=== PATIENT | female | born 1965 | race African-American/Black ===

== ENCOUNTER → 2016-05-10 | Outpatient (CLI) | payer OTHER ==
[2016-02-29 01:42] VITALS: BP 129/83
[2016-05-10 16:52] LABS: BASOPHILS % (AUTO) 1.2 % (0.2-1.0); EOSINOPHILS # (AUTO) 0.1 x10^3/uL (0.0-0.2); HEMATOCRIT 36.9 % (36.0-47.0); LYMPHOCYTES # (AUTO) 1.5 X10^3/uL (1.3-2.9); LYMPHOCYTES % (AUTO) 39.4 % (21.0-51.0); MEAN CORPUSCULAR HEMOGLOBIN 27.9 pg (27.0-34.0); MEAN CORPUSCULAR HGB CONC 32.5 g/dL (33.0-35.0); MEAN CORPUSCULAR VOLUME 85.7 fL (80.0-100.0); MEAN PLATELET VOLUME 7.5 fL (7.4-11.0); MONOCYTES # (AUTO) 0.2 x10^3/uL (0.3-0.8); MONOCYTES % (AUTO) 6.4 % (0.0-13.0); NEUTROPHILS # (AUTO) 1.9 x10^3/uL (2.2-4.8); PLATELET COUNT 361 X10^3/uL (150.0-450.0); RED BLOOD COUNT 4.31 X10^6/uL (3.5-5.4); RED CELL DISTRIBUTION WIDTH 14.4 % (11.6-16.5); WHITE BLOOD COUNT 3.8 X10^3/uL (3.6-10.0)
== END ==
LOC: LAB 16:13
PROVIDERS: ATTEND Family Medicine
DX: Z79.899 Other long term (current) drug therapy (principal)
CPT/HCPCS: 36415; 85025

== ENCOUNTER → 2016-06-07 | Outpatient (CLI) | payer OTHER ==
[2016-02-29 01:42] VITALS: BP 129/83
[2016-06-07 14:19] LABS: BASOPHILS % (AUTO) 0.6 % (0.2-1.0); EOSINOPHILS # (AUTO) 0.1 x10^3/uL (0.0-0.2); EOSINOPHILS % (AUTO) 3.1 % (0.9-2.9); HEMATOCRIT 35.2 % (36.0-47.0); HEMOGLOBIN 11.6 g/dL (12.0-16.0); LYMPHOCYTES # (AUTO) 1.5 X10^3/uL (1.3-2.9); LYMPHOCYTES % (AUTO) 40.7 % (21.0-51.0); MEAN CORPUSCULAR HEMOGLOBIN 28.2 pg (27.0-34.0); MEAN CORPUSCULAR HGB CONC 32.9 g/dL (33.0-35.0); MEAN CORPUSCULAR VOLUME 85.8 fL (80.0-100.0); MEAN PLATELET VOLUME 7.3 fL (7.4-11.0); MONOCYTES # (AUTO) 0.3 x10^3/uL (0.3-0.8); MONOCYTES % (AUTO) 9.4 % (0.0-13.0); NEUTROPHILS # (AUTO) 1.6 x10^3/uL (2.2-4.8); NEUTROPHILS % (AUTO) 46.2 % (42.0-75.0); PLATELET COUNT 322 X10^3/uL (150.0-450.0); RED BLOOD COUNT 4.11 X10^6/uL (3.5-5.4); RED CELL DISTRIBUTION WIDTH 13.6 % (11.6-16.5); WHITE BLOOD COUNT 3.6 X10^3/uL (3.6-10.0)
== END ==
LOC: LAB 13:44
PROVIDERS: ATTEND Clinical Nurse Specialist Women's Health
DX: Z79.899 Other long term (current) drug therapy (principal)
CPT/HCPCS: 36415; 85025

== ENCOUNTER → 2016-11-13 | Outpatient (CLI) | payer MEDICAID ==
[2016-02-29 01:42] VITALS: BP 129/83
--- NOTE | 2016-11-14 10:09 | RAD ---
HISTORY: Dyspnea Study: Two views of the chest Comparison: February 29, 2016 Findings: The patient is slightly rotated. The cardiac silhouette is unremarkable. The lungs are well expande d without focal infiltrate or effusion. Interstitial changes are again seen within both lungs lindsay lar to prior study. IMPRESSION: 1. No acute cardiopulmonary disease. Reported By:
--- NOTE | 2016-11-14 10:20 | RAD ---
HISTORY: Bilateral hand pain. Study: Three views each of the bilateral hands. Comparison: Bilateral hand series dated March 28, 2015. Findings: Persistent mild osteoarthritis at the DIP joint of the right middle finger. Remaining joint spaces ap pear normal. No acute cortical disruption or dislocation can be identified. No significant soft tiss ue swelling or injury can be seen. IMPRESSION: No acute osseous abnormality. Reported By:
--- NOTE | 2016-11-14 10:24 | RAD ---
HISTORY: Bilateral knee pain. Study: Three views each of the bilateral knees. Comparison: Right knee series dated February 29, 2016. Findings: No evidence for acute cortical disruption or dislocation. Mild bilateral tricompartmental osteoarthr itis. Small bilateral knee effusions. IMPRESSION: Chronic findings as above. Reported By:
--- NOTE | 2016-11-14 11:26 | RAD ---
HISTORY: Other forms of dyspnea. Study: Three views each of the bilateral feet. Comparison: Bilateral foot series dated March 28, 2015. Findings: Mild/moderate osteoarthritis of the bilateral 1st MTP joints. Bilateral calcaneal enthesophytes. No a cute cortical disruption or dislocation can be identified. No significant soft tissue swelling or in jury can be seen. IMPRESSION: No acute osseous abnormality. Reported By:
== END | disposition home or self-care (01) | DRG 204 ==
LOC: RAD 14:52
PROVIDERS: ATTEND Nurse Practitioner Family
DX: R06.09 Other forms of dyspnea (principal); M06.09 Rheumatoid arthritis without rheumatoid factor, multiple sites; M17.0 Bilateral primary osteoarthritis of knee
CPT/HCPCS: 71020; 73130; 73564; 73630

== ENCOUNTER 2022-04-14 22:54 | Inpatient (IN) ==
--- NOTE | 2022-04-14 23:31 | ED.ABDFE ---
HPI Time Seen Time Seen by Provider: 04/14/22 23:29 PCP Primary Care Physician: ROSALIO Zamora Doctors Chief Complaint Comments: 56 y/o female presents with abdominal pain. Was fine earlier today, pain woke her up. + sharp, diffuse of abdomen, does not radiate. + nausea, has vomited x 5xs. No report of diarrhea. Feels hot, no known fever. No URI symptoms. Has h/o hysterectomy, BTL in the distant past. No h/o SBOs. Chief Complaint:: C/O ABD PAIN THAT WOKE HER FROM SLEEP TONIGHT, DENIES ANY OTHER S/S Self Treatment fo Chief Complaint: NONE COVID-19 Coronavirus risk:travel/contact w/high risk person: No Has patient experienced Coronavirus symptoms: No Reviewed Nurses Notes Review: Yes Source History Provided: Patient Mode of arrival Mode of Arrival: Ambulatory Timing Onset of Chief Complaint: 04/14/22 PMH PMH Past Medical History: Yes Past Medical History: Arthritis, COPD and PUD Past Surgical History: Yes Surgical History: Hysterectomy Family History History of Family Medical Conditions: Yes Family Medical History: Diabetes Mellitus, Cancer and Hypertension Social History Does patient currently use any type of tobacco product: No Have you used tobacco products in the last 12 months: No Type of Tobacco Use: None Alcohol Use: DAILY Do you use any recreational Drugs:: No Lives Where: Home Travel Risk Coronavirus risk:travel/contact w/high risk person: No Has patient experienced Coronavirus symptoms: No Infectious screening Have you traveled outside the country in the last 6 months?: No Isolation: Standard ROS Review of Systems Constitutional: Weakness Eyes: No Symptoms Reported ENTM: No Symptoms Reported Respiratoy: No Symptoms Reported Cardiovascular: No Symptoms Reported Gastrointestinal/Abdominal: See HPI Genitourinary: No Symptoms Reported Neurological: No Symptoms Reported Musculoskeletal: No Symptoms Reported Integumentary: No Symptoms Reported All Other Systems: Reviewed and Negative PE Vital Signs Vitals: Temperature 97.6 F Pulse Rate 80 Respiratory Rate 20 Blood Pressure [Right Calf] 125/68 Blood Pressure [Left Calf] 112/48 Blood Pressure [Left Arm] 111/81 Blood Pressure [Right Arm] 122/58 Blood Pressure 122/68 O2 Sat by Pulse Oximetry 97 General General Appearance: Alert and In Distress Eyes Eye exam: PERRL and EOMI ENT ENT Exam: Mucous Membranes Moist Neck Neck Exam: Normal Inspection Respiratory Respiratory Exam: Normal Lung Sounds Bilat; negative Accessory Muscle Use or Respiratory Distress Cardiovascular Cardiovascular Exam: Regular Rate, Normal Rhythm and Normal Heart Sounds Abdominal Exam Abdominal Exam: Normal Bowel Sounds, Soft and Tenderness (diffuse, all quadrants, no guarding or rebound. Pain worse across the upper abdomen.) Back Back Exam: Normal Inspection; negative (R) CVA Tenderness or (L) CVA Tenderness Extremeties Extremities Exam: Normal Inspection; negative Edema Neurologic Neurological Exam: Alert, Oriented X3 and CN II-XII Intact; negative Motor Sensory Deficit Skin Skin Exam: Warm and Dry COURSE Treatment Treatment: 56 y/o female with sudden onset of diffuse abdominal pain, with vomiting. Pain worse across the upper abdomen. Still has her GB. W/u initiated. Given IV fluids, IV zofran. 0152 - CBC, CMP acceptable. Lipase markedly elevated at 2,086. Pt admits to drinking a few beers on a daily basis. Pt given IV dilaudid, 1 mg, for pain. CT abd/pelvis w/IV contrast done. + findings c/w acute pancreatitis, probably related to Etoh use. Recommend admission for further treatment, bowel rest. 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 ROR Labs Reviewed Laboratory Results Reviewed?: Yes Result Diagrams: 04/14/22 23:45 04/14/22 23:45 Laboratory: WBC 8.1 X10^3/uL (3.6-10.0) 04/14/22 23:45 RBC 4.43 X10^6/uL (3.5-5.4) 04/14/22 23:45 Hgb 12.6 g/dL (12.0-16.0) 04/14/22 23:45 Hct 37.6 % (36.0-47.0) 04/14/22 23:45 MCV 84.9 fL (80.0-100.0) 04/14/22 23:45 MCH 28.5 pg (27.0-34.0) 04/14/22 23:45 MCHC 33.6 g/dL (33.0-35.0) 04/14/22 23:45 RDW 13.0 % (11.6-16.5) 04/14/22 23:45 Plt Count 330 X10^3/uL (150.0-450.0) 04/14/22 23:45 MPV 7.4 fL (7.4-11.0) 04/14/22 23:45 Neut % (Auto) 66.9 % (42.0-75.0) 04/14/22 23:45 Lymph % (Auto) 25.8 % (21.0-51.0) 04/14/22 23:45 [place] % (Auto) 4.7 % (0.0-13.0) 04/14/22 23:45 Eos % (Auto) 1.7 % (0.9-2.9) 04/14/22 23:45 Baso % (Auto) 0.9 % (0.2-1.0) 04/14/22 23:45 Neut # (Auto) 5.4 x10^3/uL (2.2-4.8) H 04/14/22 23:45 Lymph # (Auto) 2.1 X10^3/uL (1.3-2.9) 04/14/22 23:45 [place] # (Auto) 0.4 x10^3/uL (0.3-0.8) 04/14/22 23:45 Eos # (Auto) 0.1 x10^3/uL (0.0-0.2) 04/14/22 23:45 Baso # (Auto) 0.1 X10^3/uL (0.0-0.1) 04/14/22 23:45 Absolute Nucleated RBC 0.0 /100WBC 04/14/22 23:45 Sodium 141 mmol/L (136-145) 04/14/22 23:45 Corrected Sodium 142 mmol/L (136-145) 04/14/22 23:45 Potassium 3.6 mmol/L (3.5-5.1) 04/14/22 23:45 Chloride 106 mmol/L (98-107) 04/14/22 23:45 Carbon Dioxide 24.6 mmol/L (21-32) 04/14/22 23:45 BUN 14 mg/dL (7-18) 04/14/22 23:45 Creatinine 0.72 mg/dL (0.55-1.02) 04/14/22 23:45 Est GFR (MDRD) Af Amer > 60 (>60) 04/14/22 23:45 Est GFR (MDRD) Non-Af > 60 (>60) 04/14/22 23:45 Glucose 139 mg/dL (65-99) H 04/14/22 23:45 Calcium 9.5 mg/dL (8.5-10.1) 04/14/22 23:45 Corrected Calcium TNP 04/14/22 23:45 Total Bilirubin 0.20 mg/dL (0.2-1.0) 04/14/22 23:45 AST 30 Units/L (15-37) 04/14/22 23:45 ALT 31 Units/L (12-78) 04/14/22 23:45 Alkaline Phosphatase 53 Units/L (46-116) 04/14/22 23:45 Total Protein 7.2 g/dL (6.4-8.2) 04/14/22 23:45 Albumin 3.4 g/dL (3.4-5.0) 04/14/22 23:45 Globulin 3.8 g/dL (2.5-4.5) 04/14/22 23:45 Albumin/Globulin Ratio 0.9 Ratio (1.1-2.1) L 04/14/22 23:45 Lipase 2086 Units/L (73-393) H 04/14/22 23:45 Lipase 2,086 XRAY XRAY Interpreted by: Both X-ray Results: CT abd/pelvis with inflammation of the pancreas. Opioid Opioid Risk Tool Age (Evan box if 16-45): No History of Preadolescent Sexual Abuse: No Total: 0 Total Score Risk Category: Low Risk Copyright: Hakan RUBALCAVA predicting aberrant behaviors Discharge Plan Diagnosis Discharge Problem: Acute pancreatitis Discharge Plan Patient Disposition: 09 ADMITTED INPATIENT Condition: Stable Prescriptions: No Action hydroxychloroquine [Plaquenil] 200 mg Tablet 200 mg PO BID Health Concerns: Post Hospitalization: new medications and changes needed to prevent readmission or further decline. Pt educated and given instructions on all concerns. Plan of Treatment: Continue with present treatment and follow up plan. Pt is to keep follow up a ppointment as instructed and take medications as ordered. Orders to Discharge Patient Discharge Orders: Transfer (Routine); Ordered 04/15/22 Ordered By: Collin Medina Follow ups/Referrals Follow ups/Referrals: TAMIA SANTAMARIA [Primary Care Provider] - 3 days
[2022-04-14] MEDS ORDERED: ZOFRAN INJ 4 MG VIAL IVP ONE (23:36)
[2022-04-14] MEDS ORDERED: NS 1,000 ML IV 1,000 ML IV ONE (23:36)
[2022-04-14] MEDS ORDERED: ZOFRAN INJ 4 MG VIAL ONE (23:40)
[2022-04-14] MEDS ORDERED: NS 1,000 ML IV 1,000 ML ONE (23:41)
[2022-04-15] LABS: BASOPHILS # (AUTO) 0.1 X10^3/uL (0.0-0.1); BASOPHILS % (AUTO) 0.9 % (0.2-1.0); EOSINOPHILS # (AUTO) 0.1 x10^3/uL (0.0-0.2); EOSINOPHILS % (AUTO) 1.7 % (0.9-2.9); HEMATOCRIT 37.6 % (36.0-47.0); HEMOGLOBIN 12.6 g/dL (12.0-16.0); LYMPHOCYTES # (AUTO) 2.1 X10^3/uL (1.3-2.9); LYMPHOCYTES % (AUTO) 25.8 % (21.0-51.0); MEAN CORPUSCULAR HEMOGLOBIN 28.5 pg (27.0-34.0); MEAN CORPUSCULAR HGB CONC 33.6 g/dL (33.0-35.0); MEAN CORPUSCULAR VOLUME 84.9 fL (80.0-100.0); MEAN PLATELET VOLUME 7.4 fL (7.4-11.0); MONOCYTES # (AUTO) 0.4 x10^3/uL (0.3-0.8); MONOCYTES % (AUTO) 4.7 % (0.0-13.0); NEUTROPHILS # (AUTO) 5.4 x10^3/uL (2.2-4.8); NEUTROPHILS % (AUTO) 66.9 % (42.0-75.0); RED BLOOD COUNT 4.43 X10^6/uL (3.5-5.4); WHITE BLOOD COUNT 8.1 X10^3/uL (3.6-10.0)
[2022-04-15 00:07] LABS: ALANINE AMINOTRANSFERASE 31 Units/L (12-78); ALBUMIN 3.4 g/dL (3.4-5.0); ALKALINE PHOSPHATASE 53 Units/L (46-116); ASPARTATE AMINO TRANSFERASE 30 Units/L (15-37); BLOOD UREA NITROGEN 14 mg/dL (7-18); CALCIUM 9.5 mg/dL (8.5-10.1); CARBON DIOXIDE 24.6 mmol/L (21-32); CHLORIDE 106 mmol/L (98-107); COR NA(FOR HYPERGLY) 142 mmol/L (136-145); CREATININE 0.72 mg/dL (0.55-1.02); SODIUM 141 mmol/L (136-145); TOTAL PROTEIN 7.2 g/dL (6.4-8.2); eGFR NON BLACK RACES > 60 (>60)
[2022-04-15 00:21] LABS: LIPASE 2086 Units/L (73-393)
[2022-04-15] MEDS ORDERED: DILAUDID INJ IVP ONE (00:36)
[2022-04-15] MEDS ORDERED: DILAUDID INJ ONE (00:39)
--- NOTE | 2022-04-15 02:40 | CT ---
PROCEDURE: CT Abdomen and Pelvis with Contrast .HISTORY: Abdomen pain and elevated lipase.TECHNIQUE: Axial images were performed through the abdomen and pelvis with the administration of IV contrast with multiplanar reformations . Oral contrast was not administered. Dose reduction techniques including Automated Exposure Control (AEC) and adjustment of mA and kV were utilized .COMPARISON: 09/05/2021.TECHNICAL QUALITY: Satisfactory .FINDINGS:Linear scar versus discoid atelectasis lung bases. Small hiatal hernia.Liver, spleen, and adrenals show no abnormality. Peripancreatic stranding diffusely consistent with mild to moderate acute pancreatitis with no pseudo cyst.Kidneys show no masses or obstruction.Normal biliary tract.No ascites or pneumoperitoneum.Mild atherosclerosis aorta.No lymphadenopathy.No bowel obstruction or inflammation and normal appendix.Pelvis shows no masses or free fluid with previous hysterectomy. Normal urinary bladder.No acute bony abnormality.IMPRESSION:1. [id number] acute pancreatitis.2. Small hiatal hernia.3. No other significant abnormality identified.Electronically signed by: Pavel Dial (Apr 15, 2022 02:38:56)
[2022-04-15] MEDS ORDERED: ZOFRAN INJ 4 MG VIAL IVP PRN (03:37)
[2022-04-15] MEDS: DILAUDID INJ IVP PRN ×4 (03:53→18:07)
[2022-04-15] MEDS: ZOSYN VIAL 3.375 GRAMS 3.375 G in NS 100 ML IV 100 ML IV SCH ×3 (03:53→22:40)
[2022-04-15] MEDS: LR 1,000 ML IV 1,000 ML IV SCH ×4 (03:53→18:55)
[2022-04-15 05:19] VITALS: BMI 29.9
[2022-04-15 06:13] LABS: BASOPHILS % (AUTO) 0.1 % (0.2-1.0); HEMATOCRIT 37.1 % (36.0-47.0); HEMOGLOBIN 12.3 g/dL (12.0-16.0); LYMPHOCYTES # (AUTO) 0.7 X10^3/uL (1.3-2.9); LYMPHOCYTES % (AUTO) 6.9 % (21.0-51.0); MEAN CORPUSCULAR HEMOGLOBIN 28.5 pg (27.0-34.0); MEAN CORPUSCULAR HGB CONC 33.2 g/dL (33.0-35.0); MEAN CORPUSCULAR VOLUME 85.9 fL (80.0-100.0); MEAN PLATELET VOLUME 7.8 fL (7.4-11.0); MONOCYTES # (AUTO) 0.4 x10^3/uL (0.3-0.8); MONOCYTES % (AUTO) 3.9 % (0.0-13.0); NEUTROPHILS # (AUTO) 9.3 x10^3/uL (2.2-4.8); NEUTROPHILS % (AUTO) 89.1 % (42.0-75.0); RED BLOOD COUNT 4.31 X10^6/uL (3.5-5.4); RED CELL DISTRIBUTION WIDTH 12.9 % (11.6-16.5); WHITE BLOOD COUNT 10.4 X10^3/uL (3.6-10.0)
[2022-04-15 06:22] LABS: ALANINE AMINOTRANSFERASE 28 Units/L (12-78); ALBUMIN 3.5 g/dL (3.4-5.0); ALKALINE PHOSPHATASE 52 Units/L (46-116); ASPARTATE AMINO TRANSFERASE 26 Units/L (15-37); BLOOD UREA NITROGEN 12 mg/dL (7-18); CALCIUM 9.3 mg/dL (8.5-10.1); CHLORIDE 106 mmol/L (98-107); COR NA(FOR HYPERGLY) 141 mmol/L (136-145); CREATININE 0.66 mg/dL (0.55-1.02); SODIUM 140 mmol/L (136-145); TOTAL PROTEIN 7.1 g/dL (6.4-8.2); eGFR NON BLACK RACES > 60 (>60)
[2022-04-15] MEDS: LOVENOX INJ 40 MG SYR SC SCH (09:50)
[2022-04-15 15:28] LABS: BILIRUBIN,URINE NEGATIVE (NEGATIVE); BLOOD/HEMOGLOBIN,URINE 1+ (NEGATIVE); GLUCOSE, URINE NEGATIVE (NEGATIVE); KETONES,URINE 1+ (NEGATIVE); LEUKOCYTE ESTERASE ,URINE NEGATIVE (NEGATIVE); NITRITES,URINE NEGATIVE (NEGATIVE); PROTEIN,URINE 1+ (NEGATIVE); UROBILINOGEN,URINE NORMAL (NORMAL)
[2022-04-15 15:33] LABS: APPEARANCE,URINE CLEAR (CLEAR); COLOR,URINE YELLOW (YELLOW)
[2022-04-15 15:38] LABS: BACTERIA,URINE 1+ /HPF (NEGATIVE); RBC,URINE 0-2 /HPF (0-3); SQUAMOUS EPITHELIAL CELL,UR NUMEROUS /HPF (NEGATIVE)
[2022-04-16] MEDS: DILAUDID INJ IVP PRN ×4 (00:24→18:05)
[2022-04-16] MEDS: LR 1,000 ML IV 1,000 ML IV SCH ×2 (02:00→03:03)
[2022-04-16] MEDS: ZOSYN VIAL 3.375 GRAMS 3.375 G in NS 100 ML IV 100 ML IV SCH ×3 (05:40→22:11)
[2022-04-16 06:15] LABS: BASOPHILS % (AUTO) 0.2 % (0.2-1.0); EOSINOPHILS # (AUTO) 0.2 x10^3/uL (0.0-0.2); EOSINOPHILS % (AUTO) 1.8 % (0.9-2.9); HEMATOCRIT 35.2 % (36.0-47.0); HEMOGLOBIN 11.7 g/dL (12.0-16.0); LYMPHOCYTES % (AUTO) 10.8 % (21.0-51.0); MEAN CORPUSCULAR HEMOGLOBIN 28.4 pg (27.0-34.0); MEAN CORPUSCULAR HGB CONC 33.4 g/dL (33.0-35.0); MEAN CORPUSCULAR VOLUME 85.1 fL (80.0-100.0); MEAN PLATELET VOLUME 7.5 fL (7.4-11.0); MONOCYTES # (AUTO) 0.4 x10^3/uL (0.3-0.8); MONOCYTES % (AUTO) 4.9 % (0.0-13.0); NEUTROPHILS # (AUTO) 7.6 x10^3/uL (2.2-4.8); NEUTROPHILS % (AUTO) 82.3 % (42.0-75.0); RED BLOOD COUNT 4.13 X10^6/uL (3.5-5.4); RED CELL DISTRIBUTION WIDTH 12.9 % (11.6-16.5); WHITE BLOOD COUNT 9.2 X10^3/uL (3.6-10.0)
[2022-04-16 06:21] LABS: ALANINE AMINOTRANSFERASE 21 Units/L (12-78); ALKALINE PHOSPHATASE 47 Units/L (46-116); ASPARTATE AMINO TRANSFERASE 22 Units/L (15-37); BLOOD UREA NITROGEN 9 mg/dL (7-18); CALCIUM 8.9 mg/dL (8.5-10.1); CARBON DIOXIDE 26.5 mmol/L (21-32); CHLORIDE 105 mmol/L (98-107); COR CA(FOR HYPOALB) 9.7 mg/dL (8.5-10.1); CREATININE 0.62 mg/dL (0.55-1.02); SODIUM 141 mmol/L (136-145); TOTAL PROTEIN 6.6 g/dL (6.4-8.2); eGFR NON BLACK RACES > 60 (>60)
--- NOTE | 2022-04-16 07:49 | DR.H&P ---
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 She reports pain is sharp, periumbilical and epigastric. Reports some nausea. Denies pain radiation, fever, chills, vomiting. She does report history of alcohol consumption of a 6 pack a day. Labs/imaging: Wbc 10.4, Hgb 12.3, Plt 312, Na 140, K 3.8, Creatinine 0.66, Glucose 135. CT abdomen and pelvis was obtained that revealed: 1. [id number] acute pancreatitis. 2. Small hiatal hernia. No other significant abnormality identified. Admit for acute pancreatitis. Will start on IVF NS@125ml/h and due to significant abdominal pain will keep NPO at this time. Mild leukocytosis on labs, was started on antibiotics Zosyn in the ED, will continue at this lorna. Will start pain control with Dilaudid 1mg q4h prn. Con tinue to closely monitor and follow up labs in the morning. Past Medical History Past Medical History: Arthritis, COPD and PUD Additional Medical History: Tobacco Abuse, Substance Abuse Past Surgical History Surgical History: Hysterectomy Family History Family Medical History: Diabetes Mellitus, Cancer and Hypertension Social History Does patient currently use any type of tobacco product: No Have you used tobacco products in the last 12 months: No Type of Tobacco Use: None Alcohol Use: DAILY Drug Use: Marijuana Medications Home Medications: ibuprofen [From Motrin] Allergy (Unknown, Verified 04/14/22 23:14) aspirin Allergy (Verified 04/14/22 23:14) Labs Result Diagrams: 04/16/22 05:47 04/16/22 05:47 Labs: Laboratory WBC 10.4 X10^3/uL (3.6-10.0) H 04/15/22 05:15 RBC 4.31 X10^6/uL (3.5-5.4) 04/15/22 05:15 Hgb 12.3 g/dL (12.0-16.0) 04/15/22 05:15 Hct 37.1 % (36.0-47.0) 04/15/22 05:15 MCV 85.9 fL (80.0-100.0) 04/15/22 05:15 MCH 28.5 pg (27.0-34.0) 04/15/22 05:15 MCHC 33.2 g/dL (33.0-35.0) 04/15/22 05:15 RDW 12.9 % (11.6-16.5) 04/15/22 05:15 Plt Count 312 X10^3/uL (150.0-450.0) 04/15/22 05:15 MPV 7.8 fL (7.4-11.0) 04/15/22 05:15 Neut % (Auto) 89.1 % (42.0-75.0) H 04/15/22 05:15 Lymph % (Auto) 6.9 % (21.0-51.0) L 04/15/22 05:15 [place] % (Auto) 3.9 % (0.0-13.0) 04/15/22 05:15 Eos % (Auto) 0.0 % (0.9-2.9) L 04/15/22 05:15 Baso % (Auto) 0.1 % (0.2-1.0) L 04/15/22 05:15 Neut # (Auto) 9.3 x10^3/uL (2.2-4.8) H 04/15/22 05:15 Lymph # (Auto) 0.7 X10^3/uL (1.3-2.9) L 04/15/22 05:15 [place] # (Auto) 0.4 x10^3/uL (0.3-0.8) 04/15/22 05:15 Eos # (Auto) 0.0 x10^3/uL (0.0-0.2) 04/15/22 05:15 Baso # (Auto) 0.0 X10^3/uL (0.0-0.1) 04/15/22 05:15 Absolute Nucleated RBC 0.0 /100WBC 04/15/22 05:15 Sodium 140 mmol/L (136-145) 04/15/22 05:15 Corrected Sodium 141 mmol/L (136-145) 04/15/22 05:15 Potassium 3.8 mmol/L (3.5-5.1) 04/15/22 05:15 Chloride 106 mmol/L (98-107) 04/15/22 05:15 Carbon Dioxide 24.0 mmol/L (21-32) 04/15/22 05:15 BUN 12 mg/dL (7-18) 04/15/22 05:15 Creatinine 0.66 mg/dL (0.55-1.02) 04/15/22 05:15 Est GFR (MDRD) Af Amer > 60 (>60) 04/15/22 05:15 Est GFR (MDRD) Non-Af > 60 (>60) 04/15/22 05:15 Glucose 135 mg/dL (65-99) H 04/15/22 05:15 Calcium 9.3 mg/dL (8.5-10.1) 04/15/22 05:15 Corrected Calcium TNP 04/15/22 05:15 Total Bilirubin 0.40 mg/dL (0.2-1.0) 04/15/22 05:15 AST 26 Units/L (15-37) 04/15/22 05:15 ALT 28 Units/L (12-78) 04/15/22 05:15 Alkaline Phosphatase 52 Units/L (46-116) 04/15/22 05:15 Total Protein 7.1 g/dL (6.4-8.2) 04/15/22 05:15 Albumin 3.5 g/dL (3.4-5.0) 04/15/22 05:15 Globulin 3.6 g/dL (2.5-4.5) 04/15/22 05:15 Albumin/Globulin Ratio 1.0 Ratio (1.1-2.1) L 04/15/22 05:15 Lipase 2711 Units/L (73-393) H 04/15/22 05:15 Review of Systems Constitutional: No Symptoms Reported Eyes: No Symptoms Reported ENT: No Symptoms Reported Respiratory: No Symptoms Reported Cardiovascular: No Symptoms Reported Gastrointestinal: Nausea and Abdominal Pain Genitourinary: No Symptoms Reported Musculoskeletal: No Symptoms Reported Skin: No Symptoms Reported Neurological: No Symptoms Reported Physical Exam Vital Signs: Temperature 98.6 F Pulse Rate [Left Brachial] 84 Pulse Rate 80 Respiratory Rate 20 Blood Pressure [Right Calf] 125/68 Blood Pressure [Left Calf] 112/48 Blood Pressure [Left Arm] 119/57 Blood Pressure [Right Arm] 115/78 Blood Pressure 122/68 O2 Sat by Pulse Oximetry 96 Oriented: Normal Eyes: Normal Ear: Normal Nose: Normal Throat: Normal Respiratory: Clear Throughout Cardiovascular: Normal : Normal Auscultation: Bowel Sounds: Normal Palpation: Normal Tenderness: Epigastric, Periumbilical and Moderate Skin: Normal Musculoskeletal: Normal Psychiatric: Normal Mood Description: Calm and Appropriate Affect: Normal Speech Pattern: Clear and Appropriate Assessment/Plan (1) Acute pancreatitis: Narrative Support Text: IVF, pain management, NPO antibiotics:zosyn Status: Acute (2) Alcohol use: Narrative Support Text: Monitor for withdrawal symptoms Status: Acute Review H&P Reviewed: Yes Patient was examined?: Yes
[2022-04-16] MEDS: NS 1,000 ML IV 1,000 ML IV SCH ×2 (09:03→17:04)
[2022-04-16] MEDS: LOVENOX INJ 40 MG SYR SC SCH (09:09)
[2022-04-16] MEDS ORDERED: POTASSIUM CHLORIDE LIQ 20 MEQ UDC PO PRN (12:03)
[2022-04-16] MEDS ORDERED: MICRO K EXTEN CAP 10 MEQ PO PRN (12:03)
[2022-04-16] MEDS ORDERED: K-DUR TAB 20 MEQ PO PRN (12:03)
[2022-04-16] MEDS ORDERED: K-RIDER 10 MEQ/NS 100 ML 10 MEQ/100 ML BAG IV PRN (12:03)
[2022-04-16] MEDS ORDERED: POTASSIUM CHL 40 MEQ/NS 0.45% 500 ML IV PRN (12:03)
[2022-04-16] MEDS ORDERED: POTASSIUM CHL 60 MEQ/NS 0.45% 500 ML IV PRN (12:03)
[2022-04-16] MEDS ORDERED: KLOR-CON PO PRN (12:03)
[2022-04-16] MEDS: MAGNESIUM SULFATE 1 GRAM/100 mL PREMIX 1 G/100 ML BAG IV PRN ×2 (13:32→14:54)
[2022-04-17] MEDS: DILAUDID INJ IVP PRN ×2 (00:11→10:04)
[2022-04-17] MEDS: NS 1,000 ML IV 1,000 ML IV SCH (01:21)
[2022-04-17] MEDS: ZOSYN VIAL 3.375 GRAMS 3.375 G in NS 100 ML IV 100 ML IV SCH (05:41)
[2022-04-17 06:35] LABS: BASOPHILS % (AUTO) 0.3 % (0.2-1.0); EOSINOPHILS # (AUTO) 0.2 x10^3/uL (0.0-0.2); EOSINOPHILS % (AUTO) 2.6 % (0.9-2.9); HEMATOCRIT 33.9 % (36.0-47.0); HEMOGLOBIN 11.2 g/dL (12.0-16.0); LYMPHOCYTES # (AUTO) 1.2 X10^3/uL (1.3-2.9); LYMPHOCYTES % (AUTO) 16.8 % (21.0-51.0); MEAN CORPUSCULAR HEMOGLOBIN 28.4 pg (27.0-34.0); MEAN CORPUSCULAR VOLUME 86.1 fL (80.0-100.0); MEAN PLATELET VOLUME 7.5 fL (7.4-11.0); MONOCYTES # (AUTO) 0.4 x10^3/uL (0.3-0.8); MONOCYTES % (AUTO) 5.9 % (0.0-13.0); NEUTROPHILS # (AUTO) 5.5 x10^3/uL (2.2-4.8); NEUTROPHILS % (AUTO) 74.4 % (42.0-75.0); RED BLOOD COUNT 3.94 X10^6/uL (3.5-5.4); WHITE BLOOD COUNT 7.4 X10^3/uL (3.6-10.0)
[2022-04-17 06:45] LABS: ALANINE AMINOTRANSFERASE 22 Units/L (12-78); ALBUMIN 2.9 g/dL (3.4-5.0); ALKALINE PHOSPHATASE 52 Units/L (46-116); ASPARTATE AMINO TRANSFERASE 21 Units/L (15-37); BLOOD UREA NITROGEN 5 mg/dL (7-18); CARBON DIOXIDE 29.5 mmol/L (21-32); CHLORIDE 106 mmol/L (98-107); COR CA(FOR HYPOALB) 9.9 mg/dL (8.5-10.1); CREATININE 0.59 mg/dL (0.55-1.02); MAGNESIUM 2.3 mg/dL (2.0-2.9); SODIUM 140 mmol/L (136-145); TOTAL PROTEIN 6.8 g/dL (6.4-8.2); eGFR NON BLACK RACES > 60 (>60)
[2022-04-17] MEDS: LOVENOX INJ 40 MG SYR SC SCH (10:08)
--- NOTE | 2022-04-17 12:30 | PCM.PROG ---
Progress Note Progress Note for Day of Date of Exam: 04/16/22 Subjective Subjective: Pt is a 56 year old female with history of alcohol dependence admitted for acute pancreatitis. This morning she reports improvement in her symptoms of abdominal pain. Labs/imaging: Wbc 9.2, Hgb 11.7, Plt 294, Na 141, K 3.0, Creatinine 0.62, Glucose 97. Pt is currently on IVF NS@125ml/h, antibiotics Zosyn, pain control with Dilaudid 1mg q4h prn. Will advance diet to clear liquids and then in the evening to Full liquid diet. Otherwisse, continue with current treatment plan. Continue to closely monitor and follow up labs in the morning. Past Medical Family Social History Allergies: Allergies ibuprofen [From Motrin] Allergy (Unknown, Verified 04/14/22 23:14) Reason: Drug allergy aspirin Allergy (Verified 04/14/22 23:14) Review of Systems ROS: No change since H&P Vital Signs and I&O's Vital Signs: Temperature 98.0 F Pulse Rate [Left Brachial] 76 Pulse Rate 80 Respiratory Rate 18 Blood Pressure [Right Calf] 125/68 Blood Pressure [Left Calf] 112/48 Blood Pressure [Left Arm] 131/80 Blood Pressure [Right Arm] 121/74 Blood Pressure 122/68 O2 Sat by Pulse Oximetry 94 Intake and Output: Intake & Output 04/14/22 04/15/22 04/16/22 04/17/22 23:59 23:59 23:59 23:59 Intake Total 825 / 825 5245 / 5245 1395 / 1395 Output Total 0 / 0 Balance 825 / 825 5244 / 5244 1395 / 1395 Physical Exam Oriented: Normal Eyes: Normal Ear: Normal Nose: Normal Throat: Normal Respiratory: Normal Cardiovascular: Normal : Normal Auscultation: Bowel Sounds: Normal Tenderness: Epigastric, Periumbilical and Moderate Skin: Normal Musculoskeletal: Normal Psychiatric: Normal Mood Description: Calm and Appropriate Affect: Normal Speech Pattern: Clear and Appropriate Laboratory and Diagnostics Result Diagrams: 04/17/22 06:18 04/17/22 06:18 Labs: Laboratory WBC 7.4 X10^3/uL (3.6-10.0) 04/17/22 06:18 RBC 3.94 X10^6/uL (3.5-5.4) 04/17/22 06:18 Hgb 11.2 g/dL (12.0-16.0) L 04/17/22 06:18 Hct 33.9 % (36.0-47.0) L 04/17/22 06:18 MCV 86.1 fL (80.0-100.0) 04/17/22 06:18 MCH 28.4 pg (27.0-34.0) 04/17/22 06:18 MCHC 33.0 g/dL (33.0-35.0) 04/17/22 06:18 RDW 13.0 % (11.6-16.5) 04/17/22 06:18 Plt Count 284 X10^3/uL (150.0-450.0) 04/17/22 06:18 MPV 7.5 fL (7.4-11.0) 04/17/22 06:18 Neut % (Auto) 74.4 % (42.0-75.0) 04/17/22 06:18 Lymph % (Auto) 16.8 % (21.0-51.0) L 04/17/22 06:18 [place] % (Auto) 5.9 % (0.0-13.0) 04/17/22 06:18 Eos % (Auto) 2.6 % (0.9-2.9) 04/17/22 06:18 Baso % (Auto) 0.3 % (0.2-1.0) 04/17/22 06:18 Neut # (Auto) 5.5 x10^3/uL (2.2-4.8) H 04/17/22 06:18 Lymph # (Auto) 1.2 X10^3/uL (1.3-2.9) L 04/17/22 06:18 [place] # (Auto) 0.4 x10^3/uL (0.3-0.8) 04/17/22 06:18 Eos # (Auto) 0.2 x10^3/uL (0.0-0.2) 04/17/22 06:18 Baso # (Auto) 0.0 X10^3/uL (0.0-0.1) 04/17/22 06:18 Absolute Nucleated RBC 0.0 /100WBC 04/17/22 06:18 Sodium 140 mmol/L (136-145) 04/17/22 06:18 Corrected Sodium TNP 04/17/22 06:18 Potassium 3.8 mmol/L (3.5-5.1) 04/17/22 06:18 Chloride 106 mmol/L (98-107) 04/17/22 06:18 Carbon Dioxide 29.5 mmol/L (21-32) 04/17/22 06:18 BUN 5 mg/dL (7-18) L 04/17/22 06:18 Creatinine 0.59 mg/dL (0.55-1.02) 04/17/22 06:18 Est GFR (MDRD) Af Amer > 60 (>60) 04/17/22 06:18 Est GFR (MDRD) Non-Af > 60 (>60) 04/17/22 06:18 Glucose 110 mg/dL (65-99) H 04/17/22 06:18 Calcium 9.0 mg/dL (8.5-10.1) 04/17/22 06:18 Corrected Calcium 9.9 mg/dL (8.5-10.1) 04/17/22 06:18 Magnesium 2.3 mg/dL (2.0-2.9) 04/17/22 06:18 Total Bilirubin 0.40 mg/dL (0.2-1.0) 04/17/22 06:18 AST 21 Units/L (15-37) 04/17/22 06:18 ALT 22 Units/L (12-78) 04/17/22 06:18 Alkaline Phosphatase 52 Units/L (46-116) 04/17/22 06:18 Total Protein 6.8 g/dL (6.4-8.2) 04/17/22 06:18 Albumin 2.9 g/dL (3.4-5.0) L 04/17/22 06:18 Globulin 3.9 g/dL (2.5-4.5) 04/17/22 06:18 Albumin/Globulin Ratio 0.7 Ratio (1.1-2.1) L 04/17/22 06:18 Lipase 2711 Units/L (73-393) H 04/15/22 05:15 Specimen Type Random urine 04/15/22 15:12 Urine Color Yellow (YELLOW) 04/15/22 15:12 Urine Appearance Clear (CLEAR) 04/15/22 15:12 Urine pH 5.0 (5.0 - 8.0) 04/15/22 15:12 Ur Specific [place] 1.025 (1.000-1.030) 04/15/22 15:12 Urine Protein 1+ (NEGATIVE) 04/15/22 15:12 Urine Glucose (UA) Negative (NEGATIVE) 04/15/22 15:12 Urine Ketones 1+ (NEGATIVE) 04/15/22 15:12 Urine Blood 1+ (NEGATIVE) 04/15/22 15:12 Urine Nitrite Negative (NEGATIVE) 04/15/22 15:12 Urine Bilirubin Negative (NEGATIVE) 04/15/22 15:12 Urine Urobilinogen Normal (NORMAL) 04/15/22 15:12 Ur Leukocyte Esterase Negative (NEGATIVE) 04/15/22 15:12 Urine RBC 0-2 /HPF (0-3) 04/15/22 15:12 Urine WBC 0-2 /HPF (0-5) 04/15/22 15:12 Ur Squamous Epith Cells Numerous /HPF (NEGATIVE) 04/15/22 15:12 Urine Bacteria 1+ /HPF (NEGATIVE) 04/15/22 15:12 Urine Mucus Moderate /HPF (NEGATIVE) 04/15/22 15:12 Ur Culture Indicated? No/not indicated 04/15/22 15:12 Plan (1) Acute pancreatitis: Status: Acute (2) Alcohol use: Status: Acute
--- NOTE | 2022-04-17 12:48 | W.DIS.FURT ---
Summary of Discharge Discharge Summary of Date Date of Exam: 04/17/22 Admission Date Date of Admission: 04/14/22 Admission Diagnosis Patient Problems (Updated 04/17/22 @ 12:35 by Lazaro Stovall) Acute pancreatitis (Acute) K85.90 Hospital Course: Pt is a 56 year old female with history of alcohol dependence admitted for acute pancreatitis that was noted on CT abdomen and pelvis with correlating elevated lipase levels. Her hospital/treatment course included: IVF NS@125ml/h, antibiotics Zosyn, pain and nausea control with Dilaudid 1mg q4h prn and zofran prn. Labs/imaging: Wbc 7.4, Hgb 11.2, Plt 284, Na 140, K 3.8, Creatinine 0.59, Glucose 110. Pt responded well to treatments. Her diet was advanced and pain residing. Pt discharged in stable condition. Rx tramadol prn and zofran prn. Instructed to refrain from alcohol consumption and follow up with pcp in 1 week. Vital Signs: Vital Signs (72 hours) 04/14/22 23:08 04/15/22 00:43 04/15/22 03:53 Temperature 97.6 F Pulse Rate 80 Pulse Rate [Left Brachial] Respiratory Rate 20 20 20 Blood Pressure 122/68 Blood Pressure [Left Arm] Blood Pressure [Right Arm] O2 Sat by Pulse Oximetry 97 Oxygen Delivery Method Room Air 04/15/22 03:40 04/15/22 03:35 04/15/22 04:00 Temperature 98.6 F 98.6 F Pulse Rate Pulse Rate [Left Brachial] 84 84 Respiratory Rate 20 20 Blood Pressure Blood Pressure [Left Arm] 119/57 119/57 Blood Pressure [Right Arm] O2 Sat by Pulse Oximetry 94 L 96 Oxygen Delivery Method Room Air Room Air Room Air 04/15/22 04:23 04/15/22 03:40 04/15/22 08:19 Temperature Pulse Rate Pulse Rate [Left Brachial] Respiratory Rate 20 18 18 Blood Pressure Blood Pressure [Left Arm] Blood Pressure [Right Arm] 115/78 O2 Sat by Pulse Oximetry 97 Oxygen Delivery Method Room Air 04/15/22 08:27 04/15/22 08:49 04/15/22 07:00 Temperature Pulse Rate Pulse Rate [Left Brachial] Respiratory Rate 18 Blood Pressure Blood Pressure [Left Arm] Blood Pressure [Right Arm] O2 Sat by Pulse Oximetry Oxygen Delivery Method Room Air Room Air 04/15/22 08:00 04/15/22 11:54 04/15/22 13:38 Temperature 98.8 F 97.6 F Pulse Rate Pulse Rate [Left Brachial] 112 H 78 Respiratory Rate 20 18 18 Blood Pressure Blood Pressure [Left Arm] 122/71 130/69 Blood Pressure [Right Arm] O2 Sat by Pulse Oximetry 96 96 Oxygen Delivery Method Room Air Room Air 04/15/22 14:08 04/15/22 16:00 04/15/22 18:07 Temperature 98.4 F Pulse Rate Pulse Rate [Left Brachial] 85 Respiratory Rate 18 18 18 Blood Pressure Blood Pressure [Left Arm] 131/80 Blood Pressure [Right Arm] O2 Sat by Pulse Oximetry 96 Oxygen Delivery Method Room Air 04/15/22 18:37 04/15/22 21:03 04/15/22 19:00 Temperature Pulse Rate Pulse Rate [Left Brachial] Respiratory Rate 18 Blood Pressure Blood Pressure [Left Arm] Blood Pressure [Right Arm] O2 Sat by Pulse Oximetry Oxygen Delivery Method Room Air Room Air 04/15/22 20:00 04/16/22 00:24 04/16/22 00:00 Temperature 99.2 F 99.1 F Pulse Rate Pulse Rate [Left Brachial] 87 89 Respiratory Rate 20 18 20 Blood Pressure Blood Pressure [Left Arm] Blood Pressure [Right Arm] 113/71 125/62 O2 Sat by Pulse Oximetry 94 L 95 Oxygen Delivery Method Room Air Room Air 04/16/22 00:54 04/16/22 04:00 04/16/22 09:04 Temperature 99.3 F Pulse Rate Pulse Rate [Left Brachial] 94 H Respiratory Rate 18 18 18 Blood Pressure Blood Pressure [Left Arm] Blood Pressure [Right Arm] 125/82 O2 Sat by Pulse Oximetry 93 L Oxygen Delivery Method Room Air 04/16/22 09:12 04/16/22 09:34 04/16/22 08:00 Temperature 98.5 F Pulse Rate Pulse Rate [Left Brachial] 90 Respiratory Rate 18 20 Blood Pressure Blood Pressure [Left Arm] Blood Pressure [Right Arm] 125/74 O2 Sat by Pulse Oximetry 95 Oxygen Delivery Method Room Air Room Air 04/16/22 07:50 04/16/22 13:33 04/16/22 14:57 Temperature Pulse Rate Pulse Rate [Left Brachial] Respiratory Rate 18 20 Blood Pressure Blood Pressure [Left Arm] Blood Pressure [Right Arm] O2 Sat by Pulse Oximetry Oxygen Delivery Method Room Air 04/16/22 18:05 04/16/22 13:53 04/16/22 17:27 Temperature 98.2 F 97.9 F Pulse Rate Pulse Rate [Left Brachial] 100 H 86 Respiratory Rate 20 20 20 Blood Pressure Blood Pressure [Left Arm] Blood Pressure [Right Arm] 137/83 115/63 O2 Sat by Pulse Oximetry 94 L 93 L Oxygen Delivery Method Room Air Room Air 04/16/22 18:35 04/16/22 19:00 04/16/22 20:00 Temperature 99.3 F Pulse Rate Pulse Rate [Left Brachial] 92 H Respiratory Rate 20 18 Blood Pressure Blood Pressure [Left Arm] Blood Pressure [Right Arm] 112/62 O2 Sat by Pulse Oximetry 93 L Oxygen Delivery Method Room Air Room Air 04/17/22 00:11 04/17/22 00:00 04/17/22 00:41 Temperature 98.8 F Pulse Rate Pulse Rate [Left Brachial] 78 Respiratory Rate 20 18 18 Blood Pressure Blood Pressure [Left Arm] Blood Pressure [Right Arm] 116/66 O2 Sat by Pulse Oximetry 95 Oxygen Delivery Method Room Air 04/16/22 21:00 04/17/22 04:00 04/17/22 10:04 Temperature 98.0 F Pulse Rate Pulse Rate [Left Brachial] 76 Respiratory Rate 18 18 Blood Pressure Blood Pressure [Left Arm] Blood Pressure [Right Arm] 121/74 O2 Sat by Pulse Oximetry 94 L Oxygen Delivery Method Room Air Room Air 04/17/22 08:00 Temperature 97.8 F Pulse Rate Pulse Rate [Left Brachial] 86 Respiratory Rate 18 Blood Pressure Blood Pressure [Left Arm] Blood Pressure [Right Arm] 125/76 O2 Sat by Pulse Oximetry 96 Oxygen Delivery Method Room Air Labs: Laboratory Last Values WBC 7.4 X10^3/uL (3.6-10.0) 04/17/22 06:18 RBC 3.94 X10^6/uL (3.5-5.4) 04/17/22 06:18 Hgb 11.2 g/dL (12.0-16.0) L 04/17/22 06:18 Hct 33.9 % (36.0-47.0) L 04/17/22 06:18 MCV 86.1 fL (80.0-100.0) 04/17/22 06:18 MCH 28.4 pg (27.0-34.0) 04/17/22 06:18 MCHC 33.0 g/dL (33.0-35.0) 04/17/22 06:18 RDW 13.0 % (11.6-16.5) 04/17/22 06:18 Plt Count 284 X10^3/uL (150.0-450.0) 04/17/22 06:18 MPV 7.5 fL (7.4-11.0) 04/17/22 06:18 Neut % (Auto) 74.4 % (42.0-75.0) 04/17/22 06:18 Lymph % (Auto) 16.8 % (21.0-51.0) L 04/17/22 06:18 Summers % (Auto) 5.9 % (0.0-13.0) 04/17/22 06:18 Eos % (Auto) 2.6 % (0.9-2.9) 04/17/22 06:18 Baso % (Auto) 0.3 % (0.2-1.0) 04/17/22 06:18 Neut # (Auto) 5.5 x10^3/uL (2.2-4.8) H 04/17/22 06:18 Lymph # (Auto) 1.2 X10^3/uL (1.3-2.9) L 04/17/22 06:18 Summers # (Auto) 0.4 x10^3/uL (0.3-0.8) 04/17/22 06:18 Eos # (Auto) 0.2 x10^3/uL (0.0-0.2) 04/17/22 06:18 Baso # (Auto) 0.0 X10^3/uL (0.0-0.1) 04/17/22 06:18 Absolute Nucleated RBC 0.0 /100WBC 04/17/22 06:18 Sodium 140 mmol/L (136-145) 04/17/22 06:18 Corrected Sodium TNP 04/17/22 06:18 Potassium 3.8 mmol/L (3.5-5.1) 04/17/22 06:18 Chloride 106 mmol/L (98-107) 04/17/22 06:18 Carbon Dioxide 29.5 mmol/L (21-32) 04/17/22 06:18 BUN 5 mg/dL (7-18) L 04/17/22 06:18 Creatinine 0.59 mg/dL (0.55-1.02) 04/17/22 06:18 Est GFR (MDRD) Af Amer > 60 (>60) 04/17/22 06:18 Est GFR (MDRD) Non-Af > 60 (>60) 04/17/22 06:18 Glucose 110 mg/dL (65-99) H 04/17/22 06:18 Calcium 9.0 mg/dL (8.5-10.1) 04/17/22 06:18 Corrected Calcium 9.9 mg/dL (8.5-10.1) 04/17/22 06:18 Magnesium 2.3 mg/dL (2.0-2.9) 04/17/22 06:18 Total Bilirubin 0.40 mg/dL (0.2-1.0) 04/17/22 06:18 AST 21 Units/L (15-37) 04/17/22 06:18 ALT 22 Units/L (12-78) 04/17/22 06:18 Alkaline Phosphatase 52 Units/L (46-116) 04/17/22 06:18 Total Protein 6.8 g/dL (6.4-8.2) 04/17/22 06:18 Albumin 2.9 g/dL (3.4-5.0) L 04/17/22 06:18 Globulin 3.9 g/dL (2.5-4.5) 04/17/22 06:18 Albumin/Globulin Ratio 0.7 Ratio (1.1-2.1) L 04/17/22 06:18 Lipase 2711 Units/L (73-393) H 04/15/22 05:15 Specimen Type Random urine 04/15/22 15:12 Urine Color Yellow (YELLOW) 04/15/22 15:12 Urine Appearance Clear (CLEAR) 04/15/22 15:12 Urine pH 5.0 (5.0 - 8.0) 04/15/22 15:12 Ur Specific [place] 1.025 (1.000-1.030) 04/15/22 15:12 Urine Protein 1+ (NEGATIVE) 04/15/22 15:12 Urine Glucose (UA) Negative (NEGATIVE) 04/15/22 15:12 Urine Ketones 1+ (NEGATIVE) 04/15/22 15:12 Urine Blood 1+ (NEGATIVE) 04/15/22 15:12 Urine Nitrite Negative (NEGATIVE) 04/15/22 15:12 Urine Bilirubin Negative (NEGATIVE) 04/15/22 15:12 Urine Urobilinogen Normal (NORMAL) 04/15/22 15:12 Ur Leukocyte Esterase Negative (NEGATIVE) 04/15/22 15:12 Urine RBC 0-2 /HPF (0-3) 04/15/22 15:12 Urine WBC 0-2 /HPF (0-5) 04/15/22 15:12 Ur Squamous Epith Cells Numerous /HPF (NEGATIVE) 04/15/22 15:12 Urine Bacteria 1+ /HPF (NEGATIVE) 04/15/22 15:12 Urine Mucus Moderate /HPF (NEGATIVE) 04/15/22 15:12 Ur Culture Indicated? No/not indicated 04/15/22 15:12 Reason For Visit: ACUTE PANCREATITIS Discharge Diagnosis All Active Problems (Updated 04/17/22 @ 12:35 by Lazaro Stovall) Acute pancreatitis (Acute) Nausea (Acute) Alcohol use (Acute) Abdominal pain (Acute) Syncope (Acute) Anemia (Acute) GERD (gastroesophageal reflux disease) (Chronic) GI (gastrointestinal bleed) (Acute) Joint pain (Acute) Knee effusion (Acute) Myalgia (Acute) Degenerative arthritis (Acute) Upper respiratory infection (Acute) Acute sinusitis (Acute) Acute bronchitis (Acute) Patient left after triage (Acute) Carbuncle of right axilla (Acute) Bronchitis (Acute) Influenza-like symptoms (Acute) Myalgia (Acute) Generalized pain (Acute) Paronychia of great toe of right foot (Acute) Acute pancreatitis (Acute) Plan of Treatment: Continue with present treatment and follow up plan. Pt is to keep follow up appointment as instructed and take medications as ordered. Discharge Medications Discharge Medications: ibuprofen [From Motrin] Allergy (Unknown, Verified 04/14/22 23:14) aspirin Allergy (Verified 04/14/22 23:14) Discharge Disposition Discharge Disposition: Home Discharge Condition: Stable Discharge Plan Discharge Plan Hospital Course: Pt is a 56 year old female with history of alcohol dependence admitted for acute pancreatitis that was noted on CT abdomen and pelvis with correlating elevated lipase levels. Her hospital/treatment course included: IVF NS@125ml/h, antibiotics Zosyn, pain and nausea control with Dilaudid 1mg q4h prn and zofran prn. Labs/imaging: Wbc 7.4, Hgb 11.2, Plt 284, Na 140, K 3.8, Creatinine 0.59, Glucose 110. Pt responded well to treatments. Her diet was advanced and pain residing. Pt discharged in stable condition. Rx tramadol prn and zofran prn. Instructed to refrain from alcohol consumption and follow up with pcp in 1 week. Patient Disposition: HOME, SELF-CARE Condition: Stable Health Concerns: Post Hospitalization: new medications and changes needed to prevent readmission or further decline. Pt educated and given instructions on all concerns. Plan of Treatment: Continue with present treatment and follow up plan. Pt is to keep follow up appointment as instructed and take medications as ordered. Prescriptions: New ondansetron HCl 4 mg tablet 4 mg PO Q4-6H PRN10 Days Qty: 30 0RF tramadol 50 mg tablet 50 mg PO Q8H MDD 3 PRN (Reason: pain) 10 Days Qty: 30 0RF Continued hydroxychloroquine [Plaquenil] 200 mg Tablet 200 mg PO BID Follow ups/Referrals Follow ups/Referrals: TAMIA SANTAMARIA [Primary Care Provider] - 3 days Instructions Stand Alone Forms: Excuse From Work or School
[2022-04-17 13:05] VITALS: BP 123/71
== END 2022-04-17 14:00 | disposition home or self-care (01) | DRG 440 ==
LOC: ER 23:02 → MED/SURG 04-15 02:40
PROVIDERS: ADMIT Internal Medicine; ATTEND Internal Medicine
DX: F12.10 Cannabis abuse, uncomplicated; F10.10 Alcohol abuse, uncomplicated; M19.90 Unspecified osteoarthritis, unspecified site; K85.20 Alcohol induced acute pancreatitis without necrosis or infection; K21.9 Gastro-esophageal reflux disease without esophagitis; J44.9 Chronic obstructive pulmonary disease, unspecified; Z72.0 Tobacco use; K85.90 Acute pancreatitis without necrosis or infection, unspecified; K44.9 Diaphragmatic hernia without obstruction or gangrene; Z87.11 Personal history of peptic ulcer disease